=== PATIENT | female | born 1950 | race Caucasian/White ===

== ENCOUNTER → 2017-09-08 | Outpatient (CLI) | payer OTHER ==
[~2017-09-08] MED LIST: FOSAMAX 70 MG T70 M1; LEVOTHROID; LEVOXYL100 MCG PO; LOSARTAN-HCTZ1 EAC2; MULTIVITAMINS; OS-CAL 500+D C1 EACH PO; PREMARIN0.625 MG; SIMVASTATIN40 MG
== END ==
LOC: M.RAD 06:20
DX: Z12.31 Encounter for screening mammogram for malignant neoplasm of breast (principal)

== ENCOUNTER → 2018-09-22 | Outpatient (CLI) | payer OTHER | LOC: M.RAD 07:12 | DX: Z12.31 Encounter for screening mammogram for malignant neoplasm of breast (principal) ==

== ENCOUNTER → 2019-09-25 | Outpatient (CLI) | payer MEDICARE | LOC: M.RAD 10:31 | DX: Z12.31 Encounter for screening mammogram for malignant neoplasm of breast (principal) ==